=== PATIENT | female | born 1980 | race Asian ===

== ENCOUNTER 2020-08-05 06:34 | Day surgery (SDC) | payer BC ==
[2020-08-05] MEDS ORDERED: Ringers Lactate 1,000 ML IV ONE (06:59)
[2020-08-05] MEDS ORDERED: LIDOCAINE 1% W/EPI 1:100,000 MDV 20 ML VIAL ONE (07:10)
[2020-08-05] MEDS ORDERED: propofoL 200 MG/20 ML VIAL IV ONE (07:10)
[2020-08-05] MEDS ORDERED: FENTANYL CITR 100 MCG/2 ML ONE (07:11)
[2020-08-05] MEDS ORDERED: LIDOCAINE 2% MPF 5 ML VIAL ONE (07:11)
[2020-08-05] MEDS ORDERED: MIDAZOLAM HCL 2 MG/2 ML INJ ONE (07:11)
[2020-08-05] MEDS ORDERED: dexAMETHasone 10 MG/ML VIAL ONE (07:11)
[2020-08-05] MEDS ORDERED: KETOROLAC 30 MG/ML INJ ONE (08:28)
[2020-08-05 09:19] VITALS: BP 114/51; TEMP 97.1; O2SAT 99
--- NOTE | 2020-08-05 09:20 | OP ---
Date of Procedure: 08/05/2020 Surgeon: Ceci Moore MD Preoperative Diagnosis: Irregular spotting, AUB-L, endometrial thickening polypoid seen on MRI. Postoperative Diagnosis: AUB-O and no polyps. Procedure Performed: Diagnostic hysteroscopy, dilatation and curettage. Anesthesia: General with LMA. Specimens: Endometrial curettings. Complications: No complications. Drains: No drains. Condition: Stable. Findings: Endometrial cavity empty. No polyps were seen. Endometrium appeared to be entirely stephan l, unremarkable without any irregularities or polyps or polypoid structures. Both tubal ostia were w ell visualized. No cavity distortion was visualized. Scope was removed. Endometrial curettings wer e performed with a #1 curette gently from all 4 malik. Specimen handed out for permanent pathology. Instruments were removed. Instrument, needle and sponge counts were correct. The patient was recov ered from anesthesia. 30 mg of Toradol intravenous for pain control given. She was taken to PACU in stable condition. Her plan is to be back in the office for 1 week followup appointment. She will be discharged home to day with the regular diet. Normal activity in 24 hours without any restrictions. All the postop instructions have been given to the deandre maradiaga and a handout. LAURA/AALIYAH Voice ID: [id number] Report ID: [id number]
== END 2020-08-05 09:33 | disposition home health service (06) ==
LOC: OR 06:34
PROVIDERS: ATTEND Obstetrics & Gynecology
PROC: 0UDB8ZX Extraction of Endometrium, Via Natural or Artificial Opening Endoscopic, Diagnostic (ICD-10-PCS; principal; 2020-08-05 07:30)
DX: N94.6 Dysmenorrhea, unspecified (principal); N84.0 Polyp of corpus uteri; N93.9 Abnormal uterine and vaginal bleeding, unspecified; Z20.828 Contact with and (suspected) exposure to other viral communicable diseases
CPT/HCPCS: 81025; 88305; 58558; U0002; J2704; J2250; J3010; J1100; J7120